=== PATIENT | female | born 1960 | race Caucasian/White ===

== ENCOUNTER → 2024-02-29 | Outpatient (CLI) | payer OTHER | LOC: LAB 14:23 → LAB SHORT 14:23 | DX: N39.0 Urinary tract infection, site not specified (principal) | CPT/HCPCS: 87077; 87086; 87186 ==

== ENCOUNTER 2024-03-31 20:02 | Emergency (ER) | payer OTHER ==
[~2024-03-31] VITALS: Ht 172.7 cm; Wt 86.2 kg
[2024-03-31] MEDS ORDERED: OxyCODONE HCL 5 MG TAB PO ONE ×2 (21:20→23:30)
[2024-03-31] MEDS ORDERED: RX Prepack 6 Tabs Oxycodone 5mg UD ONE (23:40)
[2024-03-31] MEDS ORDERED: Percocet 5-3251 EACH PO (23:47)
== END 2024-04-01 00:04 | disposition home or self-care (01) ==
LOC: ER 20:02
DX: S42.212A Unspecified displaced fracture of surgical neck of left humerus, initial encounter for closed fracture (principal); W22.8XXA Striking against or struck by other objects, initial encounter; Z88.2 Allergy status to sulfonamides
CPT/HCPCS: 29105; 73030; 73070; 99283-25; A9270

== ENCOUNTER 2025-02-20 08:24 | Day surgery (SDC) | payer OTHER ==
[2025-02-20] VITALS (16 sets, daily range): BP systolic 101–130; BP diastolic 65–93
[~2025-02-20] VITALS: Ht 172.7 cm; Wt 83.4 kg
[~2025-02-20 08:24] MED LIST: CeFAZolin Sodium 2,000 MG in NS 100 ML IV SCH; Percocet 5-3251 EACH PO; VENL25 PO
[2025-02-20] MEDS ORDERED: Tranexamic Acid 100 ML IV SCH (08:25)
[2025-02-20] MEDS ORDERED: CeFAZolin Sodium 2,000 MG VIAL ONE (08:29)
--- NOTE | 2025-02-20 09:00 | NUR ---
History, Chart, Medications and Allergies reviewed before start of procedure. Patient States Post-Procedure ride home has been arranged.
[2025-02-20] MEDS ORDERED: Bupivacaine 0.5% W/EPI 1:200000 SDV 30 ML Vial ONE (09:34)
[2025-02-20] MEDS ORDERED: EPINEPhrine HCl 1 MG / ML 30ML Vial ONE (09:34)
[2025-02-20] MEDS ORDERED: FentaNYL Citrate 50 MCG/ML 2 ML Injection ONE ×2 (09:53→11:20)
[2025-02-20] MEDS ORDERED: Ondansetron HCl 2 MG / ML 2ML Vial ONE (10:09)
[2025-02-20] MEDS ORDERED: Dexamethasone Sod Phos 10 MG/ML 1ML VIAL ONE (10:09)
[2025-02-20] MEDS ORDERED: Ketorolac Tromethamine 30mg Vial ONE (10:10)
[2025-02-20] MEDS ORDERED: HYDROmorphone HCl/Pf 1MG SYR IV PRN (11:15)
[2025-02-20] MEDS ORDERED: Albuterol 2.5 MG/3 ML VIAL INH PRN (11:15)
[2025-02-20] MEDS ORDERED: Ondansetron HCl 2 MG / ML 2ML Vial IV PRN (11:15)
[2025-02-20] MEDS ORDERED: FentaNYL Citrate 50 MCG/ML 2 ML Injection IV PRN ×2 (11:15)
[2025-02-20] MEDS ORDERED: HYDROmorphone HCl/Pf 1MG SYR ONE (11:32)
--- NOTE | 2025-02-20 12:30 | NUR ---
PT BIOX DROPS TO MID 80'S WHEN AT REST BUT ENCOURAGED TO TAKE DEEP BREATHS AND COUGH AND BIOX UP TO 98% ON RA. BREATHING TREATMENT PROVIDED.
--- NOTE | 2025-02-20 12:47 | NUR ---
PT DENIES ANY DIFFICULTY BREATHING. REPORTS NO CHANGE IN HER BREATHING AFTER BREATHING TREATMENT. PT BIOX WILL DROPS TO 84% ON ROOM AIR WIHT ORLY GRAJEDA. WILL CONTINUE TO MONITOR PATIENT. PT HAS BEEN OFF AND ON O2 2L NC TRIALING TO WEAN HER OFF O2. PT IS NOW OFF O2 SINCE BREATHING TREATMENT. WILL MONITOR FOR A BIT TO SEE IF SHE MAINTAINS HER SATS PRIOR TO DISCHARGE.
--- NOTE | 2025-02-20 13:03 | NUR ---
DR. LANE INTO TALK WITH PATIENT. HE BROUGHT PATIENT CRUTCHES AND REVIEWED INSTRUCTIONS WITH PT.
--- NOTE | 2025-02-20 13:10 | NUR ---
WHILE PT WAS TALKING WITH DR. LANE, PT BIOX CONTINUES TO DROP INTO THE LOW 80'S. PT PLACED BACK ON 2L NC. LUNG SOUNDS ARE CLEAR T/O. NO ACUTE DISTRESS.
--- NOTE | 2025-02-20 13:17 | NUR ---
PT GIVEN INCENTIVE SPIROMETER AND INSTRUCTION ON USE. PT NOW OFF O2 AND USING IS. WILL CONTINUE TO EVALUATE.
--- NOTE | 2025-02-20 13:22 | NUR ---
PT WITH SEVERAL TRIALS OFF O2 CONTINUES TO DROP LOW 82%. PT IS SLIGHTLY DROWSY BUT NOT REMOTELY OVER SEDATED. WILL CONTINUE TO MONITOR AND ENCOURAGE USE OF IS. PT REPORTS PAIN RETURNING SLIGHTLY. ICE PACK PROVIDED.
--- NOTE | 2025-02-20 13:39 | NUR ---
PT REPORTS STOMACH ACHES A BIT. PT GIVEN APPLESAUCE TO EAT. BIOX ON RA HAS MAINTAINED IN THE NELY 90'S FOR ABOUT 10 MINUTES.
--- NOTE | 2025-02-20 13:52 | NUR ---
PT MAINTAINING OW SATURATIONS ON RA ABOVE 95% FOR PAST 20 MINUTES. PT REPORTS FEELING GOOD AND READY TO GO HOME. DEMONSTATES UNDERSTANDING AND USE OF IS, ENCOURAGE USE FOR NEXT FEW DAYS. Discharge instructions reviewed with patient. Patient verbalizes understanding. Copy given to patient to take home. Discharged via wheelchair to private car for ride home. Patient States Post-Procedure ride home has been arranged.Y
== END 2025-02-20 23:00 | disposition home or self-care (01) ==
LOC: ORSCMMR 08:24 → ORD 09:45 → ORSCMMR 23:00
PROVIDERS: Orthopaedic Surgery Sports Medicine
PROC: 0SQD4ZZ Repair Left Knee Joint, Percutaneous Endoscopic Approach (ICD-10-PCS; principal; 2025-02-20 09:45)
DX: M23.201 Derangement of unspecified lateral meniscus due to old tear or injury, left knee (principal); M94.262 Chondromalacia, left knee; M25.562 Pain in left knee; F41.9 Anxiety disorder, unspecified; F32.A Depression, unspecified; Z87.891 Personal history of nicotine dependence; E78.5 Hyperlipidemia, unspecified; K21.9 Gastro-esophageal reflux disease without esophagitis; Z79.899 Other long term (current) drug therapy
CPT/HCPCS: C1713; J0165; J0690; J1100; J1171; J1885; J2405; J2704; J3010; J7120